=== PATIENT | male | born 1985 | race Caucasian/White ===

== ENCOUNTER 2016-05-12 05:53 | Emergency (ER) | payer MEDICAID, OTHER ==
[~2016-05-12] VITALS: Ht 190.5 cm; Wt 91.0 kg
[2016-05-12 06:13] VITALS: BP 136/95; PULSE 121; RESP 18; TEMP 98.1; O2SAT 97
--- NOTE | 2016-05-12 06:50 | PD ---
HPI Chief Complaint: Psychiatric Symptoms Time Seen by Provider: 06:46 Travel History International Travel<30 days: No Contact w/Intl Traveler<30days: No Traveled to known affect area: No History of Present Illness HPI 30-year-old white male presents to emergency department under Garsia act by . The patient according to the Garsia act made suicide suggestive statements regarding a gun. The patient denies this. He states that he has recently from his significant other who is the mother of his child. He has been away from home now for approximately 8 days. He alleges that he went back to the house earlier today. He had gotten into a verbal argument with his significant other who then allegedly had called police stating that he was suicidal. The patient denies any suicidal statements. He states that he does not own a gun or have access to a gun. He denies any homicidal ideation. He does admit to drinking alcohol. He denies any drugs. Does smoke cigarettes. Denies any medical complaints except for abrasion to his left forearm which he states he sustained during his interaction with . [facility] Past Medical History ADD: Yes Blood Disorders: No Cancer: No Cardiovascular Problems: No Diminished Hearing: No Genitourinary: No Immune Disorder: No Musculoskeletal: No Neurologic: No Psychiatric: No Reproductive: No Respiratory: No Immunizations Current: Yes Tetanus Vaccination: < 5 Years Past Surgical History Surgical History: No Previous Surgery Social History Alcohol Use: Yes Tobacco Use: Yes Substance Use: No Allergies-Medications (Allergen,Severity, Reaction): Coded Allergies: Ceclor (Verified Allergy, Severe, THROAT SWELLING, DIFFICULTY BREATHING, ) Sulfa (Verified Allergy, Intermediate, UNKNOWN, 10/16/15) CHILDHOOD REACTION Reported Meds & Prescriptions Reported Meds & Active Scripts Active No Active Prescriptions or Reported Medications Review of Systems Except as stated in HPI: all other systems reviewed are Neg Psychiatric: No: Anxiety, Depression, Suicidal Ideations, Disorder of Thought, Mood Disorder, Substance Abuse, Homicidal Ideation Physical Exam Narrative GENERAL: Well-nourished, well-developed patient. SKIN: Warm and dry. Superficial abrasion left forearm. HEAD: Normocephalic and atraumatic. EYES: No scleral icterus. No injection or drainage. ENT: No nasal drainage noted. Mucous membranes pink. Airway patent. NECK: Supple, trachea midline. Moves head freely without obvious discomfort. CARDIOVASCULAR: Regular rate and rhythm without murmurs, gallops, or rubs. RESPIRATORY: Breath sounds equal bilaterally. No accessory muscle use. GASTROINTESTINAL: Abdomen soft, non-tender, nondistended. EXTREMITIES: No cyanosis or edema. BACK: Nontender without obvious deformity. No CVA tenderness. NEURO: Patient is alert and oriented. no sensorimotor deficits. Nonfocal. Normal speech. PSYCH: No delusions. No auditory or visual hallucinations. Data Data Last Documented VS Vital Signs Date Time Temp Pulse Resp B/P Pulse Ox O2 Delivery O2 Flow Rate FiO2 05/12/16 06:17 18 05/12/16 06:13 98.1 121 136/95 97 Orders Complete Blood Count With Diff (05/12/16 06:22) Comprehensive Metabolic Panel (05/12/16 06:22) Psych Screen (05/12/16 06:22) Drug Screen, Random Urine (05/12/16 06:22) Alcohol (Ethanol) (05/12/16 06:22) MDM Medical Decision Making Medical Screen Exam Complete: Yes Emergency Medical Condition: Yes Medical Record Reviewed: Yes Differential Diagnosis MDM: High Differential diagnoses: Schizophrenia, schizoaffective disorder, bipolar, anxiety, depression, adjustment reaction, mood disorder NOS, ODD, depressive disorder NOS, dementia, dementia with agitation, psychosis NOS, substance induced mood disorder, intermittent explosive disorder, Asperger syndrome, infection,electrolyte abnormality, malingering. Narrative Course Mental health screening discussed with the patient. Psychiatric screen ordered. The patient has been medically cleared. This is mood disorder NOS Diagnosis Primary Impression: Unspecified episodic mood disorder Scripts No Active Prescriptions or Reported Meds Condition: Stable Jr Campbell May 12, 2016 06:50
[2016-05-12 07:02] LABS: AUTOMATED NEUTROPHIL # 5.3 TH/MM3 (1.8-7.7); BASOPHIL # 0.1 TH/MM3 (0-0.2); BASOPHIL % 0.7 % (0.0-2.0); EOSINOPHIL # 0.4 TH/MM3 (0-0.4); EOSINOPHIL % 4.7 % (0.0-4.0); HEMATOCRIT 43.2 % (39.0-51.0); HEMO FLAGS DIFF FINAL; LYMPH % 26.6 % (9.0-44.0); LYMPHOCYTE # 2.4 TH/MM3 (1.0-4.8); MEAN CELL VOLUME 87.7 FL (80.0-100.0); MEAN CORPUSCULAR HEMOGLOBIN 31.3 PG (27.0-34.0); MEAN CORPUSCULAR HGB CONC 35.7 % (32.0-36.0); MONO % 8.5 % (0.0-8.0); NEUT % 59.5 % (16.0-70.0); PLATELET COUNT 251 TH/MM3 (150-450); RED BLOOD COUNT 4.92 MIL/MM3 (4.50-5.90)
[2016-05-12 07:13] LABS: ALT (GPT) 26 U/L (12-78); ANION GAP 9 MEQ/L (5-15); AST (GOT) 24 U/L (15-37); BLOOD UREA NITROGEN 9 MG/DL (7-18); CHLORIDE 112 MEQ/L (98-107); GLOMERULAR FILTRATION RATE 82 ML/MIN (>89); POTASSIUM 3.8 MEQ/L (3.5-5.1); SODIUM (NA) 144 MEQ/L (136-145)
[2016-05-12 07:16] LABS: ALKALINE PHOSPHATASE 110 U/L (45-117); TOTAL BILIRUBIN ADULT 0.3 MG/DL (0.2-1.0)
[2016-05-12 12:01] LABS: AMPHETAMINE, URINE NEG (NEG); BARBITURATES, URINE NEG (NEG); COCAINE, URINE NEG (NEG)
[2016-05-12 13:19] VITALS: BP 126/58; PULSE 86; RESP 18; TEMP 98.2; O2SAT 98
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
== END 2016-05-12 16:43 | disposition home or self-care (01) ==
LOC: NEPA 05:53 → NEPJ 16:43
DX: F43.25 Adjustment disorder with mixed disturbance of emotions and conduct (principal); F17.210 Nicotine dependence, cigarettes, uncomplicated
CPT/HCPCS: 80053; 80307; 80320; 85025; 99284

== ENCOUNTER 2016-08-25 03:36 | Emergency (ER) | payer OTHER ==
[~2016-08-25] VITALS: Ht 190.5 cm; Wt 95.5 kg
[2016-08-25 03:43] VITALS: BP 176/113; PULSE 130; RESP 22; TEMP 97.8; O2SAT 97
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
== END 2016-08-25 04:50 ==
LOC: NEPD 03:36
DX: S80.12XA Contusion of left lower leg, initial encounter (principal); V09.20XA Pedestrian injured in traffic accident involving unspecified motor vehicles, initial encounter; Y92.410 Unspecified street and highway as the place of occurrence of the external cause; Z02.89 Encounter for other administrative examinations; Z72.0 Tobacco use
CPT/HCPCS: 99283

== ENCOUNTER 2018-03-24 16:14 | Inpatient (IN) ==
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
[2018-03-24] MEDS ORDERED: Morphine Inj 4 MG/ML Vial IV.PUSH ONE (17:41)
--- NOTE | 2018-03-24 17:49 | ED ---
HPI General Chief complaint: Skin/Abscess/Foreign Body Stated complaint: Rt Hand Middle Finger Swelling x3Days Time Seen by Provider: 03/24/18 17:01 Source: patient Mode of arrival: ambulatory Limitations: no limitations History of Present Illness HPI narrative: 32yo M with no significant PMH presents to the ED with c/o worsening redness, swelling and pain in right third digit for 2 days. Said 3 days ago, he was playing around with his brother, pushing each other and may have hit his hand but no lacerations or open wounds from that. He said the next day, his third digit started swelling and went to urgent yesterday where he was prescribed bactrim. Said he took 4 doses and the redness is spreading up the dorsum of his hand. His third digit feels numb from IP down to DIP. Has a scab from landscaping on his right third digit 30 days ago. Denies any IVDA, fever, chest pain, sob, n/v, abdominal pain, focal weakness. Related Data Home Medications Medication Instructions Recorded Confirmed sulfamethoxazole-trimethoprim 1 tab PO BID 03/24/18 03/24/18 [Bactrim DS] Allergies Allergy/AdvReac Type Severity Reaction Status Date / Time No Known Allergies Allergy Verified 03/24/18 18:39 Review of Systems ROS: all other systems reviewed are negative [facility] Social History Social History Substance History: No History of Abuse Second Hand Smoke Exposure: Yes Smoking Status: Current every day smoker Tobacco Type: Cigarettes How Often Do You Have a Drink Containing Alcohol: 2 to 3 times a week Recent Travel in [facility] within the Last 8 Weeks: No Recent Out of Country Travel within the Last 8 Weeks: No Immunization History Tetanus Immunization: <5 Years Exam Narrative Exam Narrative: GENERAL: 32yo M in mild distress. SKIN: Focused skin assessment warm/dry. HEAD: Atraumatic. Normocephalic. EYES: Pupils equal and round. No scleral icterus. No injection or drainage. CARDIOVASCULAR: Regular rate and rhythm. No murmur appreciated. RESPIRATORY: No accessory muscle use. Clear to auscultation. Breath sounds equal bilaterally. GASTROINTESTINAL: Abdomen soft, non-tender, nondistended. MUSCULOSKELETAL: Right hand: +scab that he said was 30 days old. +Diffuse erythema and edema 3rd proximal phalanx with erythematous streaking up third metacarpal. May have some fluctuance IP joint. There is no erythema on teresa aspect but it is edematous. Decreased sensation third digit distal to IP joint. No pain along flexor sheath. Pain on extensor side. Radial pulse 2+ . NEUROLOGICAL: Awake and alert. No obvious cranial nerve deficits. Motor grossly within normal limits. Normal speech. PSYCHIATRIC: Appropriate mood and affect; insight and judgment normal. Course Initial Documented Vital Signs Temperature 97.9 F 03/24/18 16:22 Pulse Rate 86 03/24/18 16:22 Respiratory Rate 16 03/24/18 16:22 Blood Pressure 145/70 H 03/24/18 16:22 Pulse Oximetry 97 03/24/18 16:22 Last Documented Vital Signs Temperature 97.8 F 03/24/18 20:50 Pulse Rate 86 03/24/18 21:30 Respiratory Rate 14 03/24/18 21:30 Blood Pressure 146/85 H 03/24/18 21:30 Pulse Oximetry 97 03/24/18 21:30 Medical Decision Making MDM Narrative Medical decision making narrative: 32yo M with swelling, pain and redness of right third digit. Impression is abscess and concern about extensor sheath involvement. Xray right hand showed soft tissue swelling but no fracture. Labs reviewed, leukocytosis at 16,100. Pt given vancomycin. I discussed with Dr. Rivera hand surgeon and he agreed that impression is abscess and recommend to admit to medicine and keep the patient NPO. Discussed with Dr. Urbina and accepted to his service, added abadn. Dr. Rivera came to the ED and took the patient to the OR. Medical Screen Exam Complete: Yes Emergency Medical Condition: Yes Differential Diagnosis Differential Diagnosis: Extensor sheath abscess vs. abscess vs. joint infection vs. cellulitis Lab Data Result diagrams: 03/24/18 17:45 03/24/18 17:45 Lab Results 03/24/18 03/24/18 03/24/18 Range/Units 17:45 17:45 17:45 CBC w Diff Auto diff final WBC 16.1 H (4.0-11.0) th/mm3 RBC 4.78 (4.50-5.90) mil/mm3 Hgb 15.0 (13.0-17.0) gm/dL Hct 43.7 (39.0-51.0) % MCV 91.3 (80.0-100.0) fL MCH 31.4 (27.0-34.0) pg MCHC 34.3 (32.0-36.0) % RDW 12.1 (11.6-17.2) % Plt Count 206 (150-450) th/mm3 MPV 9.0 (7.0-11.0) fL Neut % (Auto) 84.4 H (16.0-70.0) % Lymph % (Auto) 9.9 (9.0-44.0) % [place] % (Auto) 2.2 (0.0-8.0) % Eos % (Auto) 3.3 (0.0-4.0) % Baso % (Auto) 0.2 (0.0-2.0) % Neut # (Auto) 13.6 H (1.8-7.7) th/mm3 Lymph # (Auto) 1.6 (1.0-4.8) th/mm3 [place] # (Auto) 0.4 (0.0-0.9) th/mm3 Eos # (Auto) 0.5 H (0.0-0.4) th/mm3 Baso # (Auto) 0.0 (0.0-0.2) th/mm3 WBC Differential . Differential Comment . Sodium 136 (136-145) meq/L Potassium 3.9 (3.5-5.1) meq/L Chloride 104 (98-107) meq/L Carbon Dioxide 25.4 (21.0-32.0) meq/L Anion Gap 7 (5-15) meq/L BUN 16 (7-18) mg/dL Creatinine 1.20 (0.60-1.30) mg/dL Estimated GFR 71 L (>89) mL/min Random Glucose 93 (74-106) mg/dL Lactic Acid 0.7 (0.4-2.0) mmol/L Calcium 8.7 (8.5-10.1) mg/dL Imaging Data Radiologist's impression: Hand X-Ray 03/24/18 00:00 CONCLUSION: Soft tissue swelling at the base of the third finger. No acute fracture or joint dislocation. Discharge Plan Discharge Disposition Patient Disposition: ED Admit(ED Internal Use Only) Discharge Order Discharge Orders: ED Use Only Admit Order (Routine); Ordered 03/24/18 Ordered By: Mona Guevara Discharge Details Diagnosis: Abscess Physicians Team ED Provider: Mona Guevara Primary Care Provider: Primary Care Jeana,Nathaly Attending Provider: Pancho Urbina Other Providers: Dwight Durham Status ED Status: Left Department Discharge Information Discharge Date/Time: 03/24/18 20:09
[2018-03-24 18:00] LABS: Baso % (Auto) 0.2 % (0.0-2.0); Eos # (Auto) 0.5 th/mm3 (0.0-0.4); Eos % (Auto) 3.3 % (0.0-4.0); Hematocrit 43.7 % (39.0-51.0); Lymph # (Auto) 1.6 th/mm3 (1.0-4.8); Lymph % (Auto) 9.9 % (9.0-44.0); Mean Corpuscular HGB Conc 34.3 % (32.0-36.0); Mean Corpuscular Hemoglobin 31.4 pg (27.0-34.0); Mean Corpuscular Volume 91.3 fL (80.0-100.0); Mono # (Auto) 0.4 th/mm3 (0.0-0.9); Mono % (Auto) 2.2 % (0.0-8.0); Neut # (Auto) 13.6 th/mm3 (1.8-7.7); Neut % (Auto) 84.4 % (16.0-70.0); Platelet Count 206 th/mm3 (150-450); Red Blood Count 4.78 mil/mm3 (4.50-5.90); Red Cell Distribution Width 12.1 % (11.6-17.2); White Blood Count 16.1 th/mm3 (4.0-11.0)
[2018-03-24] MEDS ORDERED: Vancomycin Inj 1,000 MG in Sodium Chlor 0.9% Inj 250 ML IV.SIG SCH (18:00)
[2018-03-24 18:10] LABS: Potassium 3.9 meq/L (3.5-5.1)
[2018-03-24 18:12] LABS: Calcium 8.7 mg/dL (8.5-10.1)
[2018-03-24 18:13] LABS: Carbon Dioxide 25.4 meq/L (21.0-32.0)
[2018-03-24] MEDS ORDERED: Acetaminophen 325 MG Tablet PO PRN (18:42)
[2018-03-24] MEDS ORDERED: Bisacodyl 10 MG Supp RECTAL PRN (18:42)
[2018-03-24] MEDS ORDERED: Piperacil/Tazo 4.5 GM Premix 4.5 GM/100 ML BAG IV.SIG SCH (18:45)
[2018-03-24] MEDS ORDERED: fentaNYL Citrate Inj 100 MCG/2 ML Ampul ONE ×2 (19:05→20:19)
[2018-03-24] MEDS ORDERED: Lidocaine 2% Inj 50 ML Vial ONE (19:24)
[2018-03-24] MEDS ORDERED: Bupivacaine PF 0.5% Inj 30 ML Vial ONE (19:24)
[2018-03-24] MEDS ORDERED: Neomycin/Polymyxin G.U. Irrigant 1 ML Ampul ONE ×2 (19:24→19:28)
[2018-03-24] MEDS ORDERED: Ketorolac Inj 30 MG/ML (IVP) Vial IV.PUSH ONE (19:42)
[2018-03-24] MEDS ORDERED: Lidocaine PF 1% Inj 5 ML Syringe OTHER ONE (19:42)
[2018-03-24] MEDS ORDERED: Vancomycin Consult Pharmacy OTHER PRN (20:00)
[2018-03-24] MEDS ORDERED: Chlorhexidine Gluconate 2% 1 Pack (2 Cloths) TOPICAL ONE (20:35)
--- NOTE | 2018-03-24 20:50 | P.OP ---
- Preoperative Diagnosis (1) Abscess of right middle finger - Postoperative Diagnosis (1) Septic arthritis of interphalangeal joint of finger of right hand Comment: proximal interphalangeal joint right middle finger (2) Abscess of right middle finger Date of procedure: 03/24/18 Procedure: incision and drainage of right middle finger abscess arthrotomy and wash proximal interphalangeal joint right middle finger Anesthesia: other (general, LMA) Surgeon: Dwight Durham MD Estimated blood loss (mL): 5 Tourniquet time (min): 30 Pathology: other (swab from subcutaneous location and PIP jont right middle finger, synovium PIP joint for pathology) Operation and Findings: abscess and infection PIP Joint right middle finger
[2018-03-24] MEDS ORDERED: Sodium Chlor 0.9% Inj 500 ML IV.SIG SCH (21:00)
--- NOTE | 2018-03-24 21:09 | MB ---
cc: Dwight Durham MD DATE: 03/24/2018 REASON FOR CONSULTATION: Right middle finger infection. HISTORY OF PRESENT ILLNESS: The patient is a 32-year-old left-hand dominant male who presented to the ED with complaints of pain, swelling, redness involving the right middle finger for the past 2-3 days. The patient states on the patient noticed sudden onset of pain and swelling over the right middle finger region. The patient also complains of redness and streaking on the dorsal aspect of the hand. He also complains of pain, worse with range of motion of the middle finger. Denies any drainage. He was seen at the urgent care yesterday and was started on Bactrim. Despite antibiotics, he got worsening of symptoms and hence he presented to the ED. On further questioning, the patient states he had a laceration to the right middle finger, about 30 days ago, which is healing with a scab. Denies any drainage from the heel scab region. The patient also states he was able to make a full fist and he had full extension of the fingers until 2 days ago. Denies any history of IV drug abuse. Denies any numbness. Denies any fever. PAST MEDICAL HISTORY, SURGICAL HISTORY: Reviewed, not significant. PHYSICAL EXAMINATION: He is alert, oriented x 3. Examination of the right hand/middle finger reveals mild flexion deformity of the PIP joint. Swelling and erythema noted from the base of the middle phalanx to the base of the proximal phalanx with fluctuation along the radial aspect of the proximal phalanx region. Healed scab noted along the radial aspect of the PIP joint. There is also evidence of swelling and questionable fluctuation over the PIP joint region. Range of motion of the middle finger is limited and painful. He has tenderness over the PIP joint and over the proximal phalanx region. He has intact capillary refill. He has intact distal sensation. No tenderness noted over the flexor tendon sheath of the middle finger. LABORATORY DATA: His lab work was reviewed. He has a white count of 16, neutrophil shift of 84%. X-rays of the right hand shows evidence of soft tissue swelling. No evidence of radiopaque foreign body. ASSESSMENT AND PLAN: A 32-year-old male with right middle finger abscess. Questionable proximal interphalangeal joint involvement. PLAN: Plan will be to take the patient emergently for incision and drainage and possible arthrotomy, proximal interphalangeal joint, right middle finger. The patient will be admitted for IV antibiotics. The patient has been explained the risks and benefits of the procedure. He has been consented for the same. Dwight Durham MD SE/jayy , 07:36 PM , 07:42 PM
--- NOTE | 2018-03-24 23:13 | MP ---
cc: Dwight Durham MD DATE OF OPERATION: 03/24/2017 PREOPERATIVE DIAGNOSIS: Abscess, right middle finger. POSTOPERATIVE DIAGNOSIS: Abscess, right middle finger and septic arthritis proximal interphalangeal joint, right middle finger. PROCEDURE: Incision and drainage of right middle finger abscess, arthrotomy and wash proximal interphalangeal joint, right middle finger. SURGEON: Dwight Durham MD ANESTHESIA: General. ESTIMATED BLOOD LOSS: Minimal. TOURNIQUET TIME: 30 minutes at 250 mmHg. SPECIMENS: Sent for culture and sensitivity from the subcutaneous location of the right middle finger and from the proximal interphalangeal joint, right middle finger. Synovium was sent to pathology. DISPOSITION: To PACU Stable. INDICATIONS: The patient is a 32-year-old left-hand dominant male who presented with complaints of pain, swelling involving the right middle finger of 2 days' duration. The patient also gives a history of injury to the right middle finger with a laceration about 30 days ago, which was healing well until 2 days ago when he noticed sudden increase in pain and swelling involving the right middle finger. The patient denied any drainage. On examination, he had a healed scab over the dorsal radial aspect of the PIP joint of the middle finger. Surrounding swelling, erythema and fluctuation was noted. Tenderness noted over the PIP joint. He had mild flexion deformity and range of motion of the middle finger PIP joint was limited and painful. He had a white count of 16 and x-rays showed evidence of soft tissue swelling. He was consented for incision and drainage of right middle finger abscess and possible arthrotomy proximal interphalangeal joint, right middle finger. The patient was explained the risks and benefits of the procedure. PROCEDURE IN DETAIL: The patient was brought to the operating room. Under general anesthesia, the right upper extremity was sterilely prepped and draped. Incision site was marked over the abscess in a longitudinal fashion over the dorsal radial aspect of the proximal phalanx region of the middle finger extending onto the PIP joint in a transverse fashion. After limb elevation, tourniquet was inflated to 250 mmHg. Incision was then made over the proposed incision site. Soft tissue dissection was carried out. There was a pocket of pus within the subcutaneous location of the proximal phalanx region. Specimen was sent for culture and sensitivity. The pus about 3-4 mL was drained. There was extensive inflammatory tissue over the dorsal aspect of the extensor tendon and there was also evidence of bulging of the PIP joint with attenuation of the extensor tendon. Hence, a decision was made to proceed with arthrotomy. An incision was made between the central slip and the lateral band and entering the PIP joint, there was evidence of purulent material within the PIP joint with inflamed synovium. Swab was obtained for culture and sensitivity and Gram stain and synovium was sent for pathology. There was also loss of articular cartilage from the dorsal aspect of the head of the proximal phalanx. Excisional debridement of inflammatory tissue was carried out using sharp and blunt dissection. Thorough wash was given initially with normal saline mixed with hydrogen peroxide. This was then followed by normal saline mixed with irrigant about a liter of solution was used. Packing of the PIP joint and subcutaneous location was carried out using 1/4 inch iodoform packing material. Tourniquet was deflated at 30 minutes. Bleeding points were cauterized with bipolar cautery. Skin flaps were then approximated loosely with 4-0 nylon in a horizontal mattress interrupted fashion. He had good distal circulation at the end of the procedure. About 5 mL of local anesthesia containing mixture of 2% lidocaine and 0.25% Marcaine was injected as a digital block. Bulky hand dressing was applied, which was held in place with bias hand wrap. The patient was recovered and sent to recovery in stable condition. He will continue with IV antibiotics. Follow up cultures and will change the packing tomorrow. Dwight Durham MD SE/viktor/patt , 08:55 PM , 09:04 PM BIANCA
[2018-03-25] MEDS ORDERED: Piperacil/Tazo 4.5 GM Premix 4.5 GM/100 ML BAG IV.SIG SCH
[2018-03-25] MEDS ORDERED: Morphine Inj 4 MG/ML Vial IV.PUSH ONE ×2 (01:24→14:30)
[2018-03-25] MEDS: Vancomycin Inj 1,600 MG in Sodium Chlor 0.9% Inj 500 ML IV.SIG SCH ×2 (01:42→16:15)
[2018-03-25] MEDS: Sod Chloride 0.9% Inj 1,000 ML IV.CONT SCH ×3 (02:34→12:50)
[2018-03-25 06:51] LABS: Baso % (Auto) 0.2 % (0.0-2.0); Hematocrit 41.1 % (39.0-51.0); Hemoglobin 13.9 gm/dL (13.0-17.0); Lymph # (Auto) 0.7 th/mm3 (1.0-4.8); Lymph % (Auto) 4.6 % (9.0-44.0); Mean Corpuscular HGB Conc 33.8 % (32.0-36.0); Mean Corpuscular Volume 91.7 fL (80.0-100.0); Mean Platelet Volume 9.9 fL (7.0-11.0); Mono # (Auto) 0.1 th/mm3 (0.0-0.9); Mono % (Auto) 0.8 % (0.0-8.0); Neut # (Auto) 15.2 th/mm3 (1.8-7.7); Neut % (Auto) 94.4 % (16.0-70.0); Platelet Count 210 th/mm3 (150-450); Red Blood Count 4.49 mil/mm3 (4.50-5.90); Red Cell Distribution Width 12.3 % (11.6-17.2)
[2018-03-25 07:07] LABS: Chloride 108 meq/L (98-107); Potassium 4.2 meq/L (3.5-5.1); Sodium 136 meq/L (136-145)
[2018-03-25 07:15] LABS: Calcium 8.5 mg/dL (8.5-10.1)
[2018-03-25 07:16] LABS: Albumin 3.4 g/dL (3.4-5.0); Anion Gap 5 meq/L (5-15); Blood Urea Nitrogen 18 mg/dL (7-18); Carbon Dioxide 22.7 meq/L (21.0-32.0); Glucose,Random 156 mg/dL (74-106)
[2018-03-25 07:19] LABS: Alanine Aminotransferase 25 U/L (12-78); Aspartate Aminotransferase 16 U/L (15-37); Glomerular Filtration Rate 65 mL/min (>89)
[2018-03-25 07:21] LABS: Total Protein 6.9 g/dL (6.4-8.2)
[2018-03-25 07:22] LABS: Alkaline Phosphatase 92 U/L (45-117)
--- NOTE | 2018-03-25 09:31 | P.HPIM ---
History of Present Illness Primary Care Physician: No Primary Care Physician Chief Complaint: right hand infection History of Present Illness: patient is a 32 y/o male with no significant past medical history who presented to ER with right hand infection. he says that few days ago while he was wrestling with his brother he bumped his right hand to his arm after which he started to have some pain to the right hand. he says that he was seen at urgent care three days ago and was prescribed Bactrim which he took with no significant improvement. in fact he says that the swelling got worse and he went back to urgent care when he was referred to ER for further evaluation. he denies any fever or chills. Inpatient Certification Inpatient Certification: I certify that the inpatient services were ordered in accordance with Medicare regulations governing the order. This includes certification that hospital inpatient services are reasonable and necessary and in the case of services not specified as inpatient-only under 42 CFR 419.22(n), that they are appropriately provided as inpatient services in accordance to with the 2-midnight benchmark under 43 CFR 412.3(e) Estimated Total Length of Stay (Days): 2 Plans for Post Hospital Care: Home Review of Systems Review of Systems: all other systems reviewed are negative PMFSH Medical History Medical History Patient denies medical problems (Acute) Surgical History Surgical History No history of previous surgery (Acute) Social History Social History Substance History: No History of Abuse Second Hand Smoke Exposure: Yes Smoking Status: Current every day smoker Tobacco Type: Cigarettes How Often Do You Have a Drink Containing Alcohol: 2 to 3 times a week Recent Travel in [place] within the Last 8 Weeks: No Recent Out of Country Travel within the Last 8 Weeks: No Immunization History Tetanus Immunization: <5 Years Hx Influenza Vaccine This Season: No Medications and Allergies Allergies Allergy/AdvReac Type Severity Reaction Status Date / Time No Known Allergies Allergy Verified 03/24/18 18:39 Home Medications Medication Instructions Recorded Confirmed Type sulfamethoxazole-trimethoprim 1 tab PO BID 03/24/18 03/24/18 History [Bactrim DS] Active Medications: Active Medications Acetaminophen (Tylenol) 650 mg PO Q4H PRN PRN Reason: Temp > 100.4 Hydrocodone Bitart/Acetaminophen ([place] 5/325) 1 tab PO Q6H PRN PRN Reason: PAIN 1-10 AND/OR FEVER >101F Last Admin: 03/25/18 06:24 Dose: 1 tab Al Hydroxide/Mg Hydroxide (Milk Of Magnesia Liq) 30 ml PO Q12H PRN PRN Reason: Mild Constipation Bisacodyl (Dulcolax Supp) 10 mg RECTAL DAILY PRN PRN Reason: SEVERE CONSITIPATION Sodium Chloride (Ns Inj) 1,000 mls @ 100 mls/hr IV.CONT .Q10H FOR[facility]LY [facility], [facility]1983 Last Admin: 03/25/18 02:34 Dose: 100 mls/hr Lactated Ringer's (Lr 1000 Ml Inj) 1,000 mls @ 30 mls/hr IV.SIG .Q24H [facility], [facility]1983 Stop: 03/25/18 20:44 Last Admin: 03/25/18 08:52 Dose: Not Given Sodium Chloride (Ns Inj) 500 mls @ 30 mls/hr IV.SIG .Q10H FOR[facility], [facility]1983 Last Admin: 03/25/18 08:53 Dose: Not Given Vancomycin HCl 1,600 mg/ (Sodium Chloride) 516 mls @ 250 mls/hr IV.SIG Q12H [facility], [facility]1983 Last Infusion: 03/25/18 04:22 Dose: Infused Lactulose (Lactulose Liq) 30 ml PO DAILY PRN PRN Reason: SEVERE CONSITIPATION Miscellaneous Information ([facility] Ordered Lab Info) 0 each OTHER ONCE ONE Stop: 03/26/18 13:46 Nicotine (Habitrol 21 Mg Patch.24 Hr) 1 patch T-DERMAL DAILY FOR[facility]LY [facility], [facility]1983 Last Admin: 03/25/18 08:47 Dose: 1 patch Ondansetron HCl (Zofran Inj) 4 mg IV.PUSH Q6H PRN PRN Reason: NAUSEA OR VOMITING Patch Removal (Remove Old Patch) 1 each T-DERMAL DAILY FOR[facility]LY [facility], [facility] Pharmacy Profile Note (Vancomycin Consult Pharmacy) 1 each OTHER UNSCH PRN PRN Reason: Pharmacy to dose Sennosides (Senokot) 17.2 mg PO Q12H PRN PRN Reason: Moderate Constipation Sodium Chloride (Ns Flush) 2 ml IV.FLUSH BID [facility] Sodium Chloride (Ns Flush) 2 ml IV.FLUSH PRN PRN PRN Reason: FLUSH AFTER USING IV ACCESS Physical Exam Vital signs: Last Vital Signs Temp 97.4 F L 03/25/18 08:00 Pulse 75 03/25/18 08:00 Resp 20 03/25/18 08:00 BP 132/57 L 03/25/18 08:00 Pulse Ox 96 03/25/18 08:00 Intake & Output 03/23/18 03/24/18 03/25/18 03/26/18 06:59 06:59 06:59 06:59 Intake Total 1316 / 1316 Output Total 2 / Balance 1314 / 1314 Weight 95.5 kg Constitutional no acute distress Routine HEENT Exam Eye: Present PERRL Routine Neck Exam Present supple Routine Respiratory Exam Present CTA bilaterally Routine Cardiovascular Exam Present RRR Routine Abdominal Exam Present soft Routine Extremities Exam Comments: right hand covered with clean dressing. Routine Neurological Exam Present alert and oriented X3 Results Labs CBC & Chem 7: 03/25/18 06:04 03/25/18 06:04 Imaging Impressions Hand X-Ray 03/24/18 00:00 CONCLUSION: Soft tissue swelling at the base of the third finger. No acute fracture or joint dislocation. Caprini VTE Risk Assessment Caprini VTE Risk Assessment: No/Low Risk (score <= 1) Caprini Risk Assessment Model: Point Value = 1 Point Value = 2 Point Value = 3 Point Value = 5 Age 41-60 Minor surgery BMI > 25 kg/m2 Swollen legs Varicose veins or History of unexplained or recurrent spontaneous Oral contraceptives or hormone replacement Sepsis (< 1 month) Serious lung disease, including pneumonia (< 1 month) Abnormal pulmonary function Acute myocardial infarction Congestive heart failure (< 1 month) History of inflammatory bowel disease Medical patient at bed rest Age 61-74 Arthroscopic surgery Major open surgery (> 45 min) Laparoscopic surgery (> 45 min) Malignancy Confined to bed (> 72 hours) Immobilizing plaster cast Central venous access Age >= 75 History of VTE Family history of VTE Factor V Leiden Prothrombin [id number] Lupus anticoagulant Anticardiolipin antibodies Elevated serum homocysteine Heparin-induced thrombocytopenia Other congenital or acquired thrombophilia Stroke (< 1 month) Elective arthroplasty Hip, pelvis, or leg fracture Acute spinal cord injury (< 1 month) Prophylaxis Regimen: Total Risk Factor Score Risk Level Prophylaxis Regimen 0-1 Low Early ambulation 2 Moderate Order ONE of the following: *Sequential Compression Device (SCD) *Heparin 5000 units SQ BID 3-4 Higher Order ONE of the following medications: *Heparin 5000 units SQ TID *Enoxaparin/Lovenox 40 mg SQ daily (WT < 150 kg, CrCl > 30 mL/min) *Enoxaparin/Lovenox 30 mg SQ daily (WT < 150 kg, CrCl > 10-29 mL/min) *Enoxaparin/Lovenox 30 mg SQ BID (WT < 150 kg, CrCl > 30 mL/min) AND/OR *Sequential Compression Device (SCD) 5 or more Highest Order ONE of the following medications: *Heparin 5000 units SQ TID (Preferred with Epidurals) *Enoxaparin/Lovenox 40 mg SQ daily (WT < 150 kg, CrCl > 30 mL/min) *Enoxaparin/Lovenox 30 mg SQ daily (WT < 150 kg, CrCl > 10-29 mL/min) *Enoxaparin/Lovenox 30 mg SQ BID (WT < 150 kg, CrCl > 30 mL/min) AND *Sequential Compression Device (SCD) Assessment and Plan Plan A/P - right middle finger abscess- s/p I/D continue with IV antibiotics and follow the cultures- continue pain control- hand surgery following. -leukocytosis- due to infection; will monitor. Discharge Planning: home - when cleared by hand surgery- pending the cultures. H&P: Quality VTE Deep Vein Thrombosis/Pulmonary Embolism Present on Admission: No
[2018-03-25] MEDS: Piperacil/Tazo 3.375 GM Premix 3.375 GM/50 ML PIGGYBACK IV.SIG SCH ×2 (12:50→21:02)
--- NOTE | 2018-03-25 14:24 | P.PN ---
Subjective Interval history: complains of pain no numbness no fever Physical Exam Vital signs: Vital Signs 03/24/18 16:22 03/24/18 18:13 03/24/18 19:30 Temperature 97.9 F 98.6 F Pulse Rate 86 82 76 Respiratory Rate 16 18 16 Blood Pressure 145/70 H 127/82 127/82 Pulse Oximetry 97 99 100 03/24/18 20:50 03/24/18 21:00 03/24/18 21:10 Temperature 97.8 F Pulse Rate 74 74 Respiratory Rate 14 14 Blood Pressure 119/57 L 119/59 L Pulse Oximetry 97 97 99 03/24/18 21:15 03/24/18 21:30 03/24/18 22:06 Temperature 97.8 F Pulse Rate 84 86 77 Respiratory Rate 14 14 20 Blood Pressure 118/60 146/85 H 143/78 H Pulse Oximetry 98 97 94 L 03/25/18 00:00 03/25/18 04:00 03/25/18 08:00 Temperature 98.5 F 96.8 F L 97.4 F L Pulse Rate 83 80 75 Respiratory Rate 20 20 20 Blood Pressure 139/70 131/60 132/57 L Pulse Oximetry 96 95 96 03/25/18 12:00 03/25/18 12:10 Temperature 96.9 F L Pulse Rate 89 Respiratory Rate 20 18 Blood Pressure 140/69 Pulse Oximetry 97 Intake & Output 03/24/18 03/25/18 03/25/18 18:59 06:59 18:59 Intake Total 1316 / 1316 1000 / 1000 Output Total 2 / 2 Balance 1314 / 1314 1000 / 1000 Weight 95.5 kg Intake: IV 516 / 516 1000 / 1000 NS Inj 1,000 ML @ 100 mls/hr IV 1000 / 1000 .CONT .Q10H [facility] Rx#:[id number] Vancomycin Inj 1,600 MG In NS 516 / 516 Inj 500 ML @ 250 mls/hr IV.SIG Q12H [facility] Rx#:[id number] Oral 0 / 0 Anesthesia Amount 800 / 800 Other 0 / 0 Output: Estimated Blood Loss 2 / 2 Other: # Voids 0 Narrative: right hand/middle finger: dressing and packing in place swelling and redness noted minimal drainage range of motion limited and painful intact sensation wbc count still elevated at 16 Results - Labs CBC & Chem 7: 03/25/18 06:04 01/05/19 06:04 Laboratory Results - last 24 hr 03/24/18 03/24/18 03/24/18 17:45 17:45 17:45 CBC w Diff Auto diff final WBC 16.1 H RBC 4.78 Hgb 15.0 Hct 43.7 MCV 91.3 MCH 31.4 MCHC 34.3 RDW 12.1 Plt Count 206 MPV 9.0 Neut % (Auto) 84.4 H Lymph % (Auto) 9.9 [place] % (Auto) 2.2 Eos % (Auto) 3.3 Baso % (Auto) 0.2 Neut # (Auto) 13.6 H Lymph # (Auto) 1.6 [place] # (Auto) 0.4 Eos # (Auto) 0.5 H Baso # (Auto) 0.0 WBC Differential . Differential Comment . Sodium 136 Potassium 3.9 Chloride 104 Carbon Dioxide 25.4 Anion Gap 7 BUN 16 Creatinine 1.20 Estimated GFR 71 L Random Glucose 93 Lactic Acid 0.7 Calcium 8.7 Total Bilirubin AST ALT Alkaline Phosphatase Total Protein Albumin 03/25/18 03/25/18 06:04 06:04 CBC w Diff Auto diff final WBC 16.0 H RBC 4.49 L Hgb 13.9 Hct 41.1 MCV 91.7 MCH 31.0 MCHC 33.8 RDW 12.3 Plt Count 210 MPV 9.9 Neut % (Auto) 94.4 H Lymph % (Auto) 4.6 L [place] % (Auto) 0.8 Eos % (Auto) 0.0 Baso % (Auto) 0.2 Neut # (Auto) 15.2 H Lymph # (Auto) 0.7 L [place] # (Auto) 0.1 Eos # (Auto) 0.0 Baso # (Auto) 0.0 WBC Differential . Differential Comment . Sodium 136 Potassium 4.2 Chloride 108 H Carbon Dioxide 22.7 Anion Gap 5 BUN 18 Creatinine 1.30 Estimated GFR 65 L Random Glucose 156 H Lactic Acid Calcium 8.5 Total Bilirubin 0.6 AST 16 ALT 25 Alkaline Phosphatase 92 Total Protein 6.9 Albumin 3.4 Microbiology 03/24/18 17:45 Blood - Peripheral Aerobic Blood Culture - Preliminary No growth in 1 day 03/24/18 17:45 Blood - Peripheral Anaerobic Blood Culture - Preliminary No growth in 1 day 03/24/18 17:50 Blood - Peripheral Aerobic Blood Culture - Preliminary No growth in 1 day 03/24/18 17:50 Blood - Peripheral Anaerobic Blood Culture - Preliminary No growth in 1 day 03/24/18 20:11 Abscess - Finger Gram Stain - Final 03/24/18 20:03 Abscess - Finger Gram Stain - Final - Imaging Impressions Hand X-Ray 03/24/18 00:00 CONCLUSION: Soft tissue swelling at the base of the third finger. No acute fracture or joint dislocation. Assessment and Plan - Assessment (1) Septic arthritis of interphalangeal joint of finger of right hand Code(s): M00.9 - Pyogenic arthritis, unspecified Status: Acute - Plan packing pulled out a cm dry dressing applied continue with limb elevation and range of motion exercises will obtain ID consult for septic arthritis continue with iv antibiotics repeat labs tomorrow hand surgery will follow
[2018-03-26] MEDS: Vancomycin Inj 1,600 MG in Sodium Chlor 0.9% Inj 500 ML IV.SIG SCH ×2 (03:46→15:05)
[2018-03-26] MEDS: Piperacil/Tazo 3.375 GM Premix 3.375 GM/50 ML PIGGYBACK IV.SIG SCH ×3 (03:46→18:44)
[2018-03-26] MEDS: Sod Chloride 0.9% Inj 1,000 ML IV.CONT SCH ×2 (03:47→03:49)
[2018-03-26 06:48] LABS: Baso % (Auto) 0.3 % (0.0-2.0); Eos # (Auto) 0.3 th/mm3 (0.0-0.4); Eos % (Auto) 2.3 % (0.0-4.0); Hematocrit 39.2 % (39.0-51.0); Hemoglobin 13.2 gm/dL (13.0-17.0); Lymph # (Auto) 2.2 th/mm3 (1.0-4.8); Lymph % (Auto) 19.5 % (9.0-44.0); Mean Corpuscular HGB Conc 33.6 % (32.0-36.0); Mean Corpuscular Hemoglobin 31.2 pg (27.0-34.0); Mean Corpuscular Volume 92.9 fL (80.0-100.0); Mean Platelet Volume 9.5 fL (7.0-11.0); Mono # (Auto) 0.6 th/mm3 (0.0-0.9); Mono % (Auto) 5.8 % (0.0-8.0); Neut % (Auto) 72.1 % (16.0-70.0); Platelet Count 179 th/mm3 (150-450); Red Blood Count 4.23 mil/mm3 (4.50-5.90); Red Cell Distribution Width 12.5 % (11.6-17.2); White Blood Count 11.1 th/mm3 (4.0-11.0)
--- NOTE | 2018-03-26 09:48 | P.PNIM ---
Subjective Interval history: f/u; right hand infection in no acute distress. complaining of pain to the right hand- otherwise no other compolaints. afebrile. Physical Exam Vital signs: Last Vital Signs Temp 96.6 F L 03/26/18 08:00 Pulse 65 03/26/18 08:00 Resp 18 03/26/18 08:20 BP 140/76 03/26/18 08:00 Pulse Ox 96 03/26/18 08:00 Intake & Output 03/24/18 03/25/18 03/26/18 03/27/18 06:59 06:59 06:59 06:59 Intake Total 1316 / 1316 5006 / 5006 Output Total 2 / 2 Balance 1314 / 1314 5006 / 5006 Weight 95.5 kg 102.5 kg Constitutional no acute distress Routine Respiratory Exam Present CTA bilaterally Routine Cardiovascular Exam Present RRR Routine Abdominal Exam Present soft Routine Extremities Exam Comments: right hand covered in clean dressing. Routine Neurological Exam Present alert and oriented X3 Results Labs CBC & Chem 7: 03/26/18 05:49 03/25/18 06:04 Labs: Microbiology 03/24/18 17:45 Blood - Peripheral Aerobic Blood Culture - Preliminary No growth in 1 day 03/24/18 17:45 Blood - Peripheral Anaerobic Blood Culture - Preliminary No growth in 1 day 03/24/18 17:50 Blood - Peripheral Aerobic Blood Culture - Preliminary No growth in 1 day 03/24/18 17:50 Blood - Peripheral Anaerobic Blood Culture - Preliminary No growth in 1 day 03/24/18 20:11 Abscess - Finger Gram Stain - Final 03/24/18 20:03 Abscess - Finger Gram Stain - Final Assessment and Plan (1) Septic arthritis of interphalangeal joint of finger of right hand: Code(s): M00.9 - Pyogenic arthritis, unspecified Status: Acute Plan A/P - right middle finger abscess- s/p I/D continue with IV antibiotics and follow the cultures- continue pain control- hand surgery following. consulted ID. -leukocytosis- due to infection; improved-will monitor. Discharge Planning: home - when cleared by hand surgery and ID- pending the cultures. Progress Note: Quality VTE Deep Vein Thrombosis/Pulmonary Embolism Present on Admission: No
[2018-03-26] MEDS ORDERED: Morphine Inj 4 MG/ML Vial IV.PUSH SCH (10:00)
--- NOTE | 2018-03-26 10:22 | P.PN ---
Subjective Interval history: complains of pain able to move fingers better no fever or numbness Physical Exam Vital signs: Vital Signs 03/25/18 12:00 03/25/18 12:10 03/25/18 16:00 Temperature 96.9 F L 96.3 F L Pulse Rate 89 74 Respiratory Rate 20 18 20 Blood Pressure 140/69 129/66 Pulse Oximetry 97 96 03/25/18 16:18 03/25/18 19:40 03/25/18 20:00 Temperature 97.7 F Pulse Rate 83 Respiratory Rate 18 20 20 Blood Pressure 147/71 H Pulse Oximetry 96 03/25/18 20:55 03/26/18 00:00 03/26/18 08:00 Temperature 96.9 F L 96.6 F L Pulse Rate 78 65 Respiratory Rate 20 20 20 Blood Pressure 150/82 H 140/76 Pulse Oximetry 95 96 03/26/18 08:20 Temperature Pulse Rate Respiratory Rate 18 Blood Pressure Pulse Oximetry Intake & Output 03/25/18 03/26/18 03/26/18 18:59 06:59 18:59 Intake Total 1806 / 1806 3200 / 3200 Balance 1806 / 1806 3200 / 3200 Weight 102.5 kg Intake: IV 1566 / 1566 1000 / 1000 NS Inj 1,000 ML @ 100 mls/hr IV 1000 / 1000 1000 / 1000 .CONT .Q10H [facility] Rx#:[id number] Zosyn 3.375 GM Premix 3.375 gm 50 / 50 0 / 0 In 50 ml @ 100 mls/hr IV.SIG Q8H [facility] Rx#:[id number] Vancomycin Inj 1,600 MG In NS 516 / 516 Inj 500 ML @ 250 mls/hr IV.SIG Q12H [facility] Rx#:[id number] Oral 240 / 240 2200 / 2200 Other: # Voids 4 Narrative: right hand/middle finger: dressing in place one of the packing removed swelling and redness around the pip joint range of motion is limited and painful intact sensation and circulation wbc 11 gram stain: moderate wbc's Results - Labs CBC & Chem 7: 03/26/18 05:49 03/25/18 06:04 Laboratory Results - last 24 hr 03/26/18 05:49 CBC w Diff Auto diff final WBC 11.1 H RBC 4.23 L Hgb 13.2 Hct 39.2 MCV 92.9 MCH 31.2 MCHC 33.6 RDW 12.5 Plt Count 179 MPV 9.5 Neut % (Auto) 72.1 H Lymph % (Auto) 19.5 [place] % (Auto) 5.8 Eos % (Auto) 2.3 Baso % (Auto) 0.3 Neut # (Auto) 8.0 H Lymph # (Auto) 2.2 [place] # (Auto) 0.6 Eos # (Auto) 0.3 Baso # (Auto) 0.0 WBC Differential . Differential Comment . Microbiology 03/24/18 17:45 Blood - Peripheral Aerobic Blood Culture - Preliminary No growth in 1 day 03/24/18 17:45 Blood - Peripheral Anaerobic Blood Culture - Preliminary No growth in 1 day 03/24/18 17:50 Blood - Peripheral Aerobic Blood Culture - Preliminary No growth in 1 day 03/24/18 17:50 Blood - Peripheral Anaerobic Blood Culture - Preliminary No growth in 1 day 03/24/18 20:11 Abscess - Finger Gram Stain - Final 03/24/18 20:03 Abscess - Finger Gram Stain - Final Assessment and Plan - Assessment (1) Septic arthritis of interphalangeal joint of finger of right hand Code(s): M00.9 - Pyogenic arthritis, unspecified Status: Acute - Plan one of packing pulled out dry dressing applied continue with limb elevation and range of motion exercises will obtain ID consult for septic arthritis continue with iv antibiotics can remove the remaining packing and apply dry dressing tomorrow morning by the floor nurse. hand surgery will follow
[2018-03-26] MEDS ORDERED: VANCOMYCIN TROUGH OTHER ONE (13:45)
--- NOTE | 2018-03-26 17:20 | P.CONID ---
History of Present Illness Service: Infectious disease Consult date: 03/26/18 Requesting Physician: Cheryl Herrera Reason for Consult: Evaluate patient with septic finger Primary Care Provider: No Primary Care Physician Chief Complaint: right hand infection History of Present Illness: Patient seen and examined. Records reviewed. Patient is a 32-year-old male, presented to the hospital with 2-3-day history of pain, swelling, and redness on his right middle finger. Patient stated he sustained a laceration on his right middle finger about a month ago from a machine that he was working at work. He cleaned it and it closed up without any problem. On he was wrestling with his brother and as soon as he hit his brother he noted acute onset of swelling. He went to the urgent care center the following day, and he was given Bactrim. His symptoms were not improving so he presented back to the hospital for further evaluation and treatment. He denies any fever chills or sweats. He noted redness streaking going up to his mid forearm. He denies any respiratory complaint, GI or any urinary complaints. Patient has occasional ingrown hair in his trunk and he had one about a week ago and it improved. The apparently had 2 skin abscesses about 2 weeks ago that spontaneously drained and did not require any medical attention. Patient has not had any problem with big boils. Patient underwent surgery, and he had findings of septic joint in the right middle finger PIP joint. Cultures are now growing MRSA. He has not been febrile. His WBC was initially 16 K, and down to 11 K. Infectious disease consultation has been requested to assist with evaluation and treatment. Review of Systems Constitutional: Denies chills, Denies fever(s), Denies headache(s), Denies night sweats Eyes: Denies discharge, Denies dry eyes Ears, Nose, Mouth, and Throat: Denies difficulty swallowing, Denies nasal congestion, Denies nasal discharge, Denies pain with swallowing, Denies sore throat Cardiovascular: Denies chest pain, Denies shortness of breath Respiratory: Denies chest congestion, Denies cough, Denies shortness of breath Gastrointestinal: Denies abdominal pain, Denies loose stools, Denies nausea, Denies pain with swallowing, Denies vomiting Genitourinary: Denies difficulty urinating, Denies painful urination Musculoskeletal: Reports joint pain, Reports joint swelling Skin/Breast: Denies rash Neurologic: Denies headache(s) PMFSH - History History Provided By: Patient - Medical History Medical History: Medical History (Last Reviewed 03/26/18 @ 18:17 by Laquita Darby MD) Patient denies medical problems - Surgical History Surgical History: Surgical History (Last Reviewed 03/26/18 @ 18:17 by Laquita Darby MD) No history of previous surgery - Tobacco History Second Hand Smoke Exposure: Yes Tobacco Use In Past 30 Days: Yes Smoking Status: Current every day smoker Tobacco Type: Cigarettes - Alcohol History How Often Do You Have a Drink Containing Alcohol: 2 to 3 times a week - Substance Use History Substance History: No History of Abuse - Travel History Recent Travel in the [place] Within the Last 8 Weeks: No Recent Travel Out of the Country Within the Last 8 Weeks: No - Immunization History Tetanus Immunization: <5 Years Hx Influenza Vaccine This Season: No Medications and Allergies Active Medications: Active Medications Acetaminophen (Tylenol) 650 mg PO Q4H PRN PRN Reason: Temp > 100.4 Hydrocodone Bitart/Acetaminophen ([place] 10/325) 2 tab PO Q4H PRN PRN Reason: PAIN SCALE 6 TO 10 Hydrocodone Bitart/Acetaminophen ([place] 10/325) 1 tab PO Q4HR PRN PRN Reason: pain 1-5 Last Admin: 03/26/18 15:02 Dose: 1 tab Al Hydroxide/Mg Hydroxide (Milk Of Ирина Liq) 30 ml PO Q12H PRN PRN Reason: Mild Constipation Last Admin: 03/26/18 12:50 Dose: 30 ml Bisacodyl (Dulcolax Supp) 10 mg RECTAL DAILY PRN PRN Reason: SEVERE CONSITIPATION Sodium Chloride (Ns Inj) 500 mls @ 30 mls/hr IV.SIG .Q10H [facility] Last Admin: 03/25/18 08:53 Dose: Not Given Vancomycin HCl 1,600 mg/ (Sodium Chloride) 516 mls @ 250 mls/hr IV.SIG Q12H [facility] Last Admin: 03/26/18 03:46 Dose: 250 mls/hr Piperacillin/Tazobactam/Dextrose (Zosyn 3.375 Gm Premix) 3.375 gm in 50 mls @ 100 mls/hr IV.SIG Q8H [facility] Last Admin: 03/26/18 12:13 Dose: 100 mls/hr Lactulose (Lactulose Liq) 30 ml PO DAILY PRN PRN Reason: SEVERE CONSITIPATION Morphine Sulfate (Morphine Inj) 2 mg IV.PUSH ONCE [facility] Stop: 03/27/18 12:00 Nicotine (Habitrol 21 Mg Patch.24 Hr) 1 patch T-DERMAL DAILY [facility] Last Admin: 03/26/18 08:18 Dose: 1 patch Ondansetron HCl (Zofran Inj) 4 mg IV.PUSH Q6H PRN PRN Reason: NAUSEA OR VOMITING Patch Removal (Remove Old Patch) 1 each T-DERMAL DAILY [facility] Last Admin: 03/26/18 08:20 Dose: 1 each Pharmacy Profile Note (Vancomycin Consult Pharmacy) 1 each OTHER UNSCH PRN PRN Reason: Pharmacy to dose Sennosides (Senokot) 17.2 mg PO Q12H PRN PRN Reason: Moderate Constipation Sodium Chloride (Ns Flush) 2 ml IV.FLUSH BID [facility] Last Admin: 03/26/18 08:20 Dose: 2 ml Sodium Chloride (Ns Flush) 2 ml IV.FLUSH PRN PRN PRN Reason: FLUSH AFTER USING IV ACCESS Allergies Allergy/AdvReac Type Severity Reaction Status Date / Time No Known Allergies Allergy Verified 03/24/18 18:39 Home Medications Medication Instructions Recorded Confirmed Type sulfamethoxazole-trimethoprim 1 tab PO BID 03/24/18 03/24/18 History [Bactrim DS] Exam Vital signs: Vital Signs 03/25/18 19:40 03/25/18 20:00 03/25/18 20:55 Temperature 97.7 F Pulse Rate 83 Respiratory Rate 20 20 20 Blood Pressure 147/71 H Pulse Oximetry 96 03/26/18 00:00 03/26/18 08:00 03/26/18 08:20 Temperature 96.9 F L 96.6 F L Pulse Rate 78 65 Respiratory Rate 20 20 18 Blood Pressure 150/82 H 140/76 Pulse Oximetry 95 96 03/26/18 12:00 Temperature 96.2 F L Pulse Rate 66 Respiratory Rate 20 Blood Pressure 139/86 Pulse Oximetry 98 Intake & Output 03/25/18 03/26/18 03/26/18 18:59 06:59 18:59 Intake Total 1806 / 1806 3250 / 3250 Balance 1806 / 1806 3250 / 3250 Weight 102.5 kg Intake: IV 1566 / 1566 1050 / 1050 NS Inj 1,000 ML @ 100 mls/hr IV 1000 / 1000 1000 / 1000 .CONT .Q10H [facility] Rx#:[id number] Zosyn 3.375 GM Premix 3.375 gm 50 / 50 50 / 50 In 50 ml @ 100 mls/hr IV.SIG Q8H [facility] Rx#:[id number] Vancomycin Inj 1,600 MG In NS 516 / 516 Inj 500 ML @ 250 mls/hr IV.SIG Q12H [facility] Rx#:[id number] Oral 240 / 240 2200 / 2200 Other: # Voids 4 Narrative: Physical examination GENERAL: Patient is a well-nourished, well-developed male, awake and alert, not in respiratory distress. SKIN: Warm and dry. No generalized rash. Has tattos in his trunk and UE. HEAD: Atraumatic. Normocephalic. No temporal wasting, or tenderness. EYES: [place] conjunctiva. No petechia or hemorrhage. Pupils equal, round and reactive to light. Extraocular movements full and intact. No scleral icterus. No injection or drainage. EARS, NOSE AND THROAT: Nose without bleeding or purulent nasal discharge. Mucous membranes pink and moist. No oral lesions noted. NECK: Trachea midline. Supple and not tender, no meningeal signs CARDIOVASCULAR: Regular rate and rhythm. No murmurs, rubs or gallops heard RESPIRATORY: Clear to auscultation. Breath sounds equal bilaterally. No rales , wheezing or rhonchi ABDOMEN: Soft, non-tender, nondistended. Bowel sounds present and normoactive. No guarding. No rebound. No organomegaly. EXTREMITIES: No clubbing, cyanosis, or edema. He has intact dry dressing on his R hand, with pain on movement of his RMF. No lymphangitis noted. NEUROLOGICAL: Awake and alert. Cranial nerves grossly intact. Motor grossly within normal limits. PSYCHIATRIC: Normal affect, calm and cooperative. LINE: No evidence of infection Results - Labs CBC & Chem 7: 03/26/18 05:49 03/25/18 06:04 Labs: Laboratory Results - last 24 hr 03/26/18 05:49 CBC w Diff Auto diff final WBC 11.1 H RBC 4.23 L Hgb 13.2 Hct 39.2 MCV 92.9 MCH 31.2 MCHC 33.6 RDW 12.5 Plt Count 179 MPV 9.5 Neut % (Auto) 72.1 H Lymph % (Auto) 19.5 [place] % (Auto) 5.8 Eos % (Auto) 2.3 Baso % (Auto) 0.3 Neut # (Auto) 8.0 H Lymph # (Auto) 2.2 [place] # (Auto) 0.6 Eos # (Auto) 0.3 Baso # (Auto) 0.0 WBC Differential . Differential Comment . Assessment and Plan - Plan Impression Infection RMP, with septic PIP joint - S/P OR - C/S MRSA Recommendation Continue IV vanco Stop Zosyn Await Vanco trough May need to switch to a different MRSA Abx - if trough low Will need course of IV for the septic joint I will D/W Dr Durham Monitor progress I will follow along with you Thank you for this consultation Explained plan to patient and
[2018-03-27] MEDS: Vancomycin Inj 1,600 MG in Sodium Chlor 0.9% Inj 500 ML IV.SIG SCH ×2 (01:19→14:08)
[2018-03-27] MEDS: Piperacil/Tazo 3.375 GM Premix 3.375 GM/50 ML PIGGYBACK IV.SIG SCH (03:28)
[2018-03-27] MEDS ORDERED: Morphine Inj 4 MG/ML Vial IV.PUSH SCH (09:00)
--- NOTE | 2018-03-27 09:21 | P.PNIM ---
Subjective Interval history: f/u; right hand infection in no acute distress. pain is better. no fever. d/w the RN. Physical Exam Vital signs: Last Vital Signs Temp 96.1 F L 03/27/18 00:00 Pulse 66 03/27/18 00:00 Resp 16 03/27/18 04:40 BP 140/82 03/27/18 00:00 Pulse Ox 97 03/27/18 00:00 Intake & Output 03/25/18 03/26/18 03/27/18 03/28/18 06:59 06:59 06:59 06:59 Intake Total 1316 / 1316 5572 / 5572 666 / 666 516 / 516 Output Total 2 / 2 Balance 1314 / 1314 5572 / 5572 666 / 666 516 / 516 Weight 95.5 kg 102.5 kg 104.3 kg Constitutional no acute distress Routine Respiratory Exam Present CTA bilaterally Routine Cardiovascular Exam Present RRR Routine Abdominal Exam Present soft Routine Extremities Exam Comments: right hand covered with clean dressing. Routine Neurological Exam Present alert and oriented X3 Results Labs CBC & Chem 7: 03/26/18 05:49 03/25/18 06:04 Labs: Microbiology 03/24/18 20:11 Abscess - Finger Gram Stain - Final 03/24/18 20:11 Abscess - Finger Wound Culture - Preliminary S. aureus MRSA 03/24/18 20:03 Abscess - Finger Gram Stain - Final 03/24/18 20:03 Abscess - Finger Wound Culture - Preliminary 03/24/18 17:45 Blood - Peripheral Aerobic Blood Culture - Preliminary No growth in 2 days 03/24/18 17:45 Blood - Peripheral Anaerobic Blood Culture - Preliminary No growth in 2 days 03/24/18 17:50 Blood - Peripheral Aerobic Blood Culture - Preliminary No growth in 2 days 03/24/18 17:50 Blood - Peripheral Anaerobic Blood Culture - Preliminary No growth in 2 days Assessment and Plan Plan A/P - right middle finger abscess- s/p I/D wound culture with MRSA- currently on IV Vancomycin- ID consult appreciated- hand surgery following. continue with pain control. -leukocytosis- due to infection; improved-will monitor. Discharge Planning: home - when cleared by hand surgery and ID- Progress Note: Quality VTE Deep Vein Thrombosis/Pulmonary Embolism Present on Admission: No
--- NOTE | 2018-03-27 14:34 | P.PNID ---
Subjective Remarks: Patient is a 32-year-old male, presented to the hospital with 2-3-day history of pain, swelling, and redness on his right middle finger. Patient stated he sustained a laceration on his right middle finger about a month ago from a machine that he was working at work. He cleaned it and it closed up without any problem. On he was wrestling with his brother and as soon as he hit his brother he noted acute onset of swelling. He went to the urgent care center the following day, and he was given Bactrim. His symptoms were not improving so he presented back to the hospital for further evaluation and treatment. He denies any fever chills or sweats. He noted redness streaking going up to his mid forearm. He denies any respiratory complaint, GI or any urinary complaints. Patient has occasional ingrown hair in his trunk and he had one about a week ago and it improved. The apparently had 2 skin abscesses about 2 weeks ago that spontaneously drained and did not require any medical attention. Patient has not had any problem with big boils. Patient underwent surgery, and he had findings of septic joint in the right middle finger PIP joint. Cultures are now growing MRSA. He has not been febrile. His WBC was initially 16 K, and down to 11 K. Infectious disease consultation has been requested to assist with evaluation and treatment. Notes reviewed No complaints No fever OR C/S MRSA D/W Dr Durham - will examine finger today and see if any further OR needed Antibiotics: Vancomycin Past Medical History: Unremarkable Allergies/Adverse Reactions: Allergies No Known Allergies Allergy (Verified 03/24/18 18:39) Objective Vital Signs 03/26/18 20:00 03/27/18 00:00 03/27/18 04:40 Temperature 96.5 F L 96.1 F L Pulse Rate 70 66 Respiratory Rate 18 18 16 Blood Pressure 144/83 H 140/82 Pulse Oximetry 98 97 03/27/18 08:00 03/27/18 09:47 03/27/18 09:48 Temperature 97.2 F L Pulse Rate 69 Respiratory Rate 20 16 16 Blood Pressure 138/75 Pulse Oximetry 95 03/27/18 10:18 03/27/18 12:00 Temperature 96 F L Pulse Rate 66 Respiratory Rate 16 20 Blood Pressure 148/78 H Pulse Oximetry 97 Intake & Output 03/26/18 03/27/18 03/27/18 18:59 06:59 18:59 Intake Total 566 / 566 100 / 100 516 / 516 Balance 566 / 566 100 / 100 516 / 516 Weight 104.3 kg Intake: IV 566 / 566 100 / 100 516 / 516 Zosyn 3.375 GM Premix 3.375 gm 50 / 50 100 / 100 In 50 ml @ 100 mls/hr IV.SIG Q8H [facility] Rx#:[id number] Vancomycin Inj 1,600 MG In NS 516 / 516 516 / 516 Inj 500 ML @ 250 mls/hr IV.SIG Q12H [facility] Rx#:[id number] Other: # Voids 1 03/24/18 20:03 Abscess - Finger Gram Stain - Final 03/24/18 20:03 Abscess - Finger Wound Culture - Final 03/24/18 20:11 Abscess - Finger Gram Stain - Final 03/24/18 20:11 Abscess - Finger Wound Culture - Final S. aureus MRSA 03/24/18 17:45 Blood - Peripheral Aerobic Blood Culture - Preliminary No growth in 3 days 03/24/18 17:45 Blood - Peripheral Anaerobic Blood Culture - Preliminary No growth in 3 days 03/24/18 17:50 Blood - Peripheral Aerobic Blood Culture - Preliminary No growth in 3 days 03/24/18 17:50 Blood - Peripheral Anaerobic Blood Culture - Preliminary No growth in 3 days Lab - Hematology Results 03/26/18 05:49 CBC w Diff Auto diff final WBC 11.1 H RBC 4.23 L Hgb 13.2 Hct 39.2 MCV 92.9 MCH 31.2 MCHC 33.6 RDW 12.5 Plt Count 179 MPV 9.5 Neut % (Auto) 72.1 H Lymph % (Auto) 19.5 [place] % (Auto) 5.8 Eos % (Auto) 2.3 Baso % (Auto) 0.3 Neut # (Auto) 8.0 H Lymph # (Auto) 2.2 [place] # (Auto) 0.6 Eos # (Auto) 0.3 Baso # (Auto) 0.0 WBC Differential . Differential Comment . Imaging: ITS Impressions Hand X-Ray 03/24/18 00:00 CONCLUSION: Soft tissue swelling at the base of the third finger. No acute fracture or joint dislocation. Physical Exam: GENERAL: awake and alert, not in respiratory distress. SKIN: Warm and dry. No generalized rash. Has tattos in his trunk and UE. HEAD: Atraumatic. Normocephalic. No temporal wasting, or tenderness. EYES: [place] conjunctiva. No scleral icterus. No injection or drainage. EARS, NOSE AND THROAT: Mucous membranes pink and moist. No oral lesions noted. NECK: Trachea midline. Supple and not tender, no meningeal signs CARDIOVASCULAR: Regular rate and rhythm. No murmurs, rubs or gallops heard RESPIRATORY: Clear to auscultation. Breath sounds equal bilaterally. No rales , wheezing or rhonchi ABDOMEN: Soft, non-tender, nondistended. Bowel sounds present and normoactive. No guarding. No rebound. No organomegaly. EXTREMITIES: No clubbing, cyanosis, or edema. He has intact dry dressing on his R hand, with pain on movement of his RMF. No lymphangitis noted. Per RN has packing in place, with swelling NEUROLOGICAL: Non-focal PSYCHIATRIC: Normal affect, calm and cooperative. 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
[2018-03-27] MEDS ORDERED: DAPTOmycin Inj 600 MG in Sodium Chlor 0.9% Inj 100 ML IV.SIG SCH (16:00)
[2018-03-27] MEDS: DAPTOmycin Inj 600 MG in Sodium Chlor 0.9% Inj 100 ML IV.SIG SCH (21:39)
--- NOTE | 2018-03-28 08:49 | P.DCO ---
Post Hospital Infusion Therapy - Infusion Therapy Location of Infusion Therapy: Home Health Care IV Infusion Order - Patient Information Patient Weight: 104.6 kg - Diagnosis (1) Septic arthritis of interphalangeal joint of finger of right hand Code(s): M00.9 - Pyogenic arthritis, unspecified (2) MRSA (methicillin resistant Staphylococcus aureus) infection Code(s): A49.02 - Methicillin resistant Staphylococcus aureus infection, unspecified site - Administer Medication Daptomycin Dose: 600 mg IV Directions: q 24 hours Stop Treatment: 04/16/18 - Additional Information Venous Access: PICC Line Additional Instructions: [x] Peripheral flush and dressing changes per protocol [x] Implanted port and central electrical lineworker: * Implanted port: 10 ml Normal Saline followed by 5 ml Heparin 100 units/ml Heparin flush after each use and monthly to maintain. [] May leave port accessed during therapy. [] May leave peripheral site accessed for duration of therapy. [x] If patient has SOB or respiratory distress, check oxygen saturation. If less than 90% or clinical signs of respiratory distress, administer oxygen at 2 L/min. via nasal cannula and notify physician. [x] Anaphylaxis/Reaction orders: * Stop infusion. * Keep IV line open with saline flush. * Notify physician. * Monitor vital signs every 15 minutes until symptoms resolve. * Check Oxygen saturation; Oxygen at 2 L/min. via nasal cannula if less than 90% or clinical signs of respiratory distress. * Administer diphenhydramine (Benadryl) 25 mg IV STAT, (unless patient has received as pre-med). May repeat once, if necessary. * Solu-Cortef 250 mg IVP over 30-60 seconds, use 100 mg vials for each dissolution. * Epinephrine (1mg/1 ml) 0.3 mg subcutaneously or IVP now with any signs of respiratory distress. * Check with physician for new additional pre-med orders if patient is re- challenged or re-treated. [x] May remove PICC line when treatment complete. [x] If the patient is admitted to the hospital, the ED, or transferred via [facility] , complete transfer form including medication reconciliation order sheet. Weekly Labs: CBC w/diff, Creatinine, Serum CK Levels (Labs every Tuesday - copy to me) Additional Information: Wound care orders from Dr Durham - Case Management Consult Case Management Consult-IVF: Yes - Patient Information Allergies No Known Allergies Allergy (Verified 03/24/18 18:39)
--- NOTE | 2018-03-28 09:10 | P.PNIM ---
Subjective Interval history: f/u; right hand infection in no acute distress. looks more comfortable today. no fever or new complaints. Physical Exam Vital signs: Last Vital Signs Temp 96.5 F L 03/28/18 00:00 Pulse 70 03/28/18 00:00 Resp 18 03/28/18 08:55 BP 157/73 H 03/28/18 00:00 Pulse Ox 95 03/28/18 00:00 Intake & Output 03/26/18 03/27/18 03/28/18 03/29/18 06:59 06:59 06:59 06:59 Intake Total 5572 / 5572 666 / 666 2091 Balance 5572 / 5572 666 / 666 2091 Weight 102.5 kg 104.3 kg 104.6 kg 104.6 kg Constitutional no acute distress Routine Respiratory Exam Present CTA bilaterally Routine Cardiovascular Exam Present RRR Routine Abdominal Exam Present soft Routine Extremities Exam Comments: right hand covered with clean dressing. Routine Neurological Exam Present alert and oriented X3 Results Labs CBC & Chem 7: 03/26/18 05:49 03/25/18 06:04 Labs: Microbiology 03/24/18 20:03 Abscess - Finger Gram Stain - Final 03/24/18 20:03 Abscess - Finger Wound Culture - Final 03/24/18 20:11 Abscess - Finger Gram Stain - Final 03/24/18 20:11 Abscess - Finger Wound Culture - Final S. aureus MRSA 03/24/18 17:45 Blood - Peripheral Aerobic Blood Culture - Preliminary No growth in 3 days 03/24/18 17:45 Blood - Peripheral Anaerobic Blood Culture - Preliminary No growth in 3 days 03/24/18 17:50 Blood - Peripheral Aerobic Blood Culture - Preliminary No growth in 3 days 03/24/18 17:50 Blood - Peripheral Anaerobic Blood Culture - Preliminary No growth in 3 days Assessment and Plan (1) Septic arthritis of interphalangeal joint of finger of right hand: Code(s): M00.9 - Pyogenic arthritis, unspecified Status: Acute (2) MRSA (methicillin resistant Staphylococcus aureus) infection: Code(s): A49.02 - Methicillin resistant Staphylococcus aureus infection, unspecified site Status: Acute Plan A/P - right middle finger abscess- s/p I/D wound culture with MRSA- switched to Cubicin- ID consult appreciated- hand surgery following. will place PICC line today in preparation for discharge on IV antibiotic per ID recommendations. continue with pain control. -leukocytosis- due to infection; improved-will monitor. Discharge Planning: home - when cleared by hand surgery. PICC line today. case management consulted to assist with IV antibiotic therapy. d/w the patient and . Progress Note: Quality VTE Deep Vein Thrombosis/Pulmonary Embolism Present on Admission: No
[2018-03-28] MEDS: DAPTOmycin Inj 600 MG in Sodium Chlor 0.9% Inj 100 ML IV.SIG SCH (20:20)
[2018-03-28 22:03] VITALS: O2SAT 98
[2018-03-29 01:07] VITALS: BP 139/85; PULSE 64; TEMP 97.9
[2018-03-29 08:21] VITALS: RESP 18
--- NOTE | 2018-03-29 08:33 | P.PNIM ---
Subjective Interval history: f/u; right hand infection in no acute distress. pain is fairly controlled. no fever or new complaints. Results Labs CBC & Chem 7: 03/26/18 05:49 03/25/18 06:04 Labs: Microbiology 03/24/18 17:45 Blood - Peripheral Aerobic Blood Culture - Preliminary No growth in 4 days 03/24/18 17:45 Blood - Peripheral Anaerobic Blood Culture - Preliminary No growth in 4 days 03/24/18 17:50 Blood - Peripheral Aerobic Blood Culture - Preliminary No growth in 4 days 03/24/18 17:50 Blood - Peripheral Anaerobic Blood Culture - Preliminary No growth in 4 days Assessment and Plan (1) Septic arthritis of interphalangeal joint of finger of right hand: Code(s): M00.9 - Pyogenic arthritis, unspecified Status: Acute (2) MRSA (methicillin resistant Staphylococcus aureus) infection: Code(s): A49.02 - Methicillin resistant Staphylococcus aureus infection, unspecified site Status: Acute Plan A/P - right middle finger abscess- s/p I/D wound culture with MRSA- switched to Cubicin- ID consult appreciated- hand surgery following. will place PICC line today in preparation for discharge on IV antibiotic per ID recommendations. continue with pain control. -leukocytosis- due to infection; improved-will monitor. Discharge Planning: home - when cleared by hand surgery. PICC line today. case management consulted to assist with IV antibiotic therapy. d/w the patient and Dr.Dimayuga. Velazquez was consulted before discharge. Progress Note: Quality VTE Deep Vein Thrombosis/Pulmonary Embolism Present on Admission: No
--- NOTE | 2018-03-29 11:04 | P.DS ---
DS: Providers Date of admission: 03/24/18 18:40 Primary care physician: No Primary Care Physician Consults: 03/24/18 18:37 Consult to Hand Surgery Routine Consulting Provider: Dwight Durham Reason for Consultation: hand injury Notified:: Service Spoke with:: BUCKY Date Notified:: 03/24/18 Time Notified:: 19:36 Ordering Provider: GARY 03/25/18 11:55 HUB Only Consult Order Routine Consulting Provider: [facility],R2G 03/25/18 17:28 Consult to Infectious Diseases Routine Consulting Provider: Laquita Darby Reason for Consultation: right hand infection. Notified:: Service Spoke with:: RADHA Date Notified:: 03/25/18 Time Notified:: 17:55 Ordering Provider: SAW Brief History from admission: patient is a 32 y/o male with no significant past medical history who presented to ER with right hand infection. he says that few days ago while he was wrestling with his brother he bumped his right hand to his arm after which he started to have some pain to the right hand. he says that he was seen at urgent care three days ago and was prescribed Bactrim which he took with no significant improvement. in fact he says that the swelling got worse and he went back to urgent care when he was referred to ER for further evaluation. he denies any fever or chills. DS: Diagnosis Discharge Diagnosis (1) Septic arthritis of interphalangeal joint of finger of right hand: Status: Acute (2) MRSA (methicillin resistant Staphylococcus aureus) infection: Status: Acute DS: Summary right middle finger abscess- s/p I/D wound culture with MRSA- switched to Cubicin- ID consult appreciated- hand surgery following. PICC line has been placed. continue with pain control. -leukocytosis- due to infection; improved-will monitor. Time Spent with Patient Total time spent providing and/or coordinating discharge services: Quality: VTE Deep Vein Thrombosis/Pulmonary Embolism Present on Admission: No Exam Narrative Exam Narrative: in no acute distress. right hand covered with clean dressing. abdomen is soft. bilateral air entry present on lung exam. Results Procedures completed during hospitalization: I/D of the right hand. Completed studies during hospitalization: Pending at discharge 03/24/18 09:09 Surgical [PTH] Routine Impressions ITS Impressions Hand X-Ray 03/24/18 00:00 CONCLUSION: Soft tissue swelling at the base of the third finger. No acute fracture or joint dislocation. Discharge Plan Discharge Disposition Patient Disposition: Discharge Home Discharge Order Discharge Orders: Discharge Order (Routine); Ordered 03/29/18 Ordered By: Cheryl Herrera Physicians Team Primary Care Provider: [facility] N[facility]aly [facility] Attending Provider: Cheryl Herrera Other Providers: Dwight Durham ; [facility],Insurance ; Laquita Darby Rxs /Orders / Referrals /Forms Prescriptions: New hydrocodone-acetaminophen [[place]] 5-325 mg tablet 1 tab PO Q6H Qty: 10 RF: 0 Discontinued sulfamethoxazole-trimethoprim [Bactrim DS] 800-160 mg Tablet 1 tab PO BID RF: 0 Referrals: [facility] Nathaly Hills [Primary Care Provider] - See Instructions Discharge Instructions Patient Printed Instructions: Hydrocodone/Acetaminophen (By mouth), MRSA ( Methicillin-Resistant Staphylococcus Aureus) (DC), Incision and Drainage (DC), Abscess Incision and Drainage (DC), How to Flush Your PICC or Midline Catheter ( DC), Peripherally Inserted Central Catheters and Midline Catheters (DC) Additional Instructions: Please call the physician's office to book the appointment to be seen within 1 week. Goals to Promote Your Health: * To prevent worsening of your condition * To maintain your health at the optimal level Directions to Meet Your Goals: * Take your medications as prescribed * Follow your dietary instruction * Follow activity as directed * Keep your appointments as scheduled * Take your immunizations and boosters as scheduled * If your symptoms worsen call your PCP * If no PCP go to Urgent Care or Emergency Room Smoking is dangerous to your health. Avoid second hand smoke. You may reach the 24-hour crisis hotline for domestic abuse at . Post Discharge Care Plan Care Plan Goals: Please fYour Health Problems: Goals to Promote Your Health: * To prevent worsening of your condition * To maintain your health at the optimal level Directions to Meet Your Goals: * Take your medications as prescribed * Follow your dietary instruction * Follow activity as directed * Keep your appointments as scheduled * Take your immunizations and boosters as scheduled * If your symptoms worsen call your PCP * If no PCP go to Urgent Care or Emergency Room Smoking is dangerous to your health. Avoid second hand smoke. You may reach the 24-hour crisis hotline for domestic abuse at 4-333-512- 5013.Follow up with Dr Miguel trent surgery next week, call for appointment. Status ED Status: Left Department Discharge Information Discharge Date/Time: 03/29/18 11:59
[2018-03-30] MEDS ORDERED: Heparin Central Flush 100 UNIT/ML 5 ML Vial IV.FLUSH SCH (09:00)
== END 2018-03-29 11:59 | disposition home or self-care (01) | DRG 580 ==
LOC: PHEFT 16:14 → PHEDA 18:40 → PH3 21:39
PROVIDERS: ADMIT Internal Medicine; ATTEND Internal Medicine
DX: B95.62 Methicillin resistant Staphylococcus aureus infection as the cause of diseases classified elsewhere; F17.210 Nicotine dependence, cigarettes, uncomplicated; M00.9 Pyogenic arthritis, unspecified; L02.511 Cutaneous abscess of right hand; X58.XXXA Exposure to other specified factors, initial encounter; M21.241 Flexion deformity, right finger joints
CPT/HCPCS: 36569; 73130; 76937; 80048; 80053; 80202; 82550; 83605; 85025; 87040; 87070; 87205; 88305; 90774; 90775; 96374; 96375; 99285; C8952; C9124; J0878; J1100; J1885; J2001; J2250; J2270; J2405; J2543; J2704; J3010; J3370; J7030; J7040; J7050